=== PATIENT | male | born 1945 | race Caucasian/White ===

== ENCOUNTER 2017-09-11 09:32 | Emergency (ER) | payer OTHER ==
[~2017-09-11] VITALS: Ht 172.7 cm; Wt 149.7 kg
[~2017-09-11 09:32] MED LIST: ACET325 PO; ACYC5TO15G TOP; ALBU3IS INH; ASPI325 PO; ASPI81CH PO; Antivert12.5 MG PO; BUME2 PO; Bactrim 400-801 EACH PO; CALC.25 PO; CARV25 PO; CARV6.25 PO; CITA20 PO; CLIN300 PO; CLON.5 PO; CLON1 PO; CYAN500 PO; DILT240 PO; FLUC100 PO; FURO40 PO; GABA300 PO; HYDACE10B PO; INS70/30I SC; LIDO5TP TOP; Lotrimin AF90 GM TP; MECL12.5 PO; METO2.5 PO; NYSTRITC TOP; OXYACE5T PO; OXYC1TAB11 PO; Pedi-Dri 100,0060 GM TOP; ROPI1 PO; Requip0.5 MG PO; SIMV10 PO; SIMV40 PO; SPIR50 PO; Simvastatin20 MG PO; TAMS.4ER PO; TRAZ50 PO; ULORIC; WARF3 PO; WARF6 PO; ZOLP10 PO; ZOLP12.5 PO
[2017-09-11 10:16] LABS: BASOPHILS PERCENT AUTO 0 % (0-2); EOSINOPHILS ABSOLUTE AUTO 0.01 K/mm3 (0.00-0.68); EOSINOPHILS PERCENT AUTO 0 % (0-6); Hematocrit 38.7 % (37.0-53.0); IMMATURE GRAN ABSOLUTE AUTO 0.01 K/mm3 (0.00-0.10); IMMATURE GRAN PERCENT AUTO 0 % (0-1); LYMPHOCYTES ABSOLUTE AUTO 0.67 K/mm3 (0.84-5.20); LYMPHOCYTES PERCENT AUTO 17 % (21-46); MONOCYTES ABSOLUTE AUTO 0.29 K/mm3 (0.16-1.47); MONOCYTES PERCENT AUTO 7 % (4-13); Mean Corpuscular HGB 30.6 pg (26.0-34.0); Mean Corpuscular HGB Conc 33.6 g/dL (31.5-36.5); Mean Corpuscular Volume 91 fL (80-100); Mean Platelet Volume 12.6 fL (9.1-12.4); NEUTROPHILS ABSOLUTE AUTO 2.99 K/mm3 (1.96-9.15); NEUTROPHILS PERCENT AUTO 75 % (41-73); Platelet Count 92 K/mm3 (150-400); RDW Coefficient Variation 14.5 % (11.7-14.2); RDW Standard Deviation 48.1 fL (35.1-46.3); Red Blood Cell Count 4.25 M/mm3 (4.30-5.90); White Blood Cell Count 3.97 K/mm3 (4.00-11.30)
[2017-09-11 10:30] LABS: Alanine Aminotransfer (ALT/SGP 10 U/L (12-78); Albumin, Blood 3.6 g/dL (3.4-5.0); Alk Phos 71 U/L (50-136); Anion Gap 9 mmol/L (6-16); Aspartate Aminotrans (AST/SGOT 13 U/L (12-37); Bilirubin, Total 0.7 mg/dL (0.1-1.0); Blood Urea Nitrogen 12 mg/dL (8-24); CO2, Blood 26 mmol/L (21-32); Calcium, Blood 8.4 mg/dL (8.5-10.1); Chloride, Blood 101 mmol/L (98-108); Creatinine, Blood 1.09 mg/dL (0.60-1.20); Globulin, Blood 3.5 g/dL (2.2-4.0); Glomerular Filtration Rate >60 (60-); Glucose, Blood 92 mg/dL (70-99); Potassium, Blood 3.7 mmol/L (3.5-5.5); Sodium, Blood 136 mmol/L (136-145); Total Protein, Blood 7.1 g/dL (6.4-8.2); Troponin I 0.026 ng/mL (0.000-0.040)
[2017-09-11] MEDS ORDERED: AZIT500 PO (12:26)
[2017-09-11 12:38] LABS: International Normalized Ratio 1.07; Prothrombin Time Results 11.2 Sec (9.7-11.5)
[2017-12-11] MEDS ORDERED: INSU100I6 SC (13:05)
[2018-06-24] MEDS ORDERED: PRED20 (10:10)
== END 2017-09-11 13:35 | disposition home or self-care (01) ==
LOC: ER 09:32
PROVIDERS: Emergency Medicine
DX: J18.9 Pneumonia, unspecified organism (principal); L30.9 Dermatitis, unspecified; Z88.1 Allergy status to other antibiotic agents; Z79.899 Other long term (current) drug therapy; Z79.01 Long term (current) use of anticoagulants; Z79.82 Long term (current) use of aspirin; I13.0 Hypertensive heart and chronic kidney disease with heart failure and stage 1 through stage 4 chronic kidney disease, or unspecified chronic kidney disease; E11.22 Type 2 diabetes mellitus with diabetic chronic kidney disease; N18.9 Chronic kidney disease, unspecified; I50.9 Heart failure, unspecified; I48.91 Unspecified atrial fibrillation
CPT/HCPCS: 36415; 71046; 80053; 83880; 84484; 85025; 85610; 93005; 93010; 99283

== ENCOUNTER 2017-12-07 09:00 | Inpatient (IN) | payer OTHER ==
[~2017-12-07] VITALS: Ht 172.7 cm; Wt 146.5 kg
[~2017-12-07 09:00] MED LIST changes: +AZIT500 PO
[2017-12-07] MEDS ORDERED: XARELTO15 MG PO (09:26)
[2017-12-07] MEDS ORDERED: FURO80 PO (09:27)
[2017-12-07] MEDS ORDERED: SPIR50 PO (09:27)
[2017-12-07] MEDS ORDERED: DULO30 PO (09:28)
[2017-12-07 09:42] LABS: BASOPHILS ABSOLUTE AUTO 0.06 K/mm3 (0.00-0.23); BASOPHILS PERCENT AUTO 0 % (0-2); EOSINOPHILS ABSOLUTE AUTO 0.06 K/mm3 (0.00-0.68); EOSINOPHILS PERCENT AUTO 0 % (0-6); Hematocrit 38.5 % (37.0-53.0); Hemoglobin 12.5 g/dL (13.5-17.5); IMMATURE GRAN PERCENT AUTO 1 % (0-1); LYMPHOCYTES ABSOLUTE AUTO 1.35 K/mm3 (0.84-5.20); LYMPHOCYTES PERCENT AUTO 8 % (21-46); MONOCYTES ABSOLUTE AUTO 1.04 K/mm3 (0.16-1.47); MONOCYTES PERCENT AUTO 6 % (4-13); Mean Corpuscular HGB 31.8 pg (26.0-34.0); Mean Corpuscular HGB Conc 32.5 g/dL (31.5-36.5); Mean Corpuscular Volume 98 fL (80-100); Mean Platelet Volume 12.8 fL (9.1-12.4); NEUTROPHILS ABSOLUTE AUTO 15.19 K/mm3 (1.96-9.15); NEUTROPHILS PERCENT AUTO 85 % (41-73); Platelet Count 185 K/mm3 (150-400); RDW Standard Deviation 50.6 fL (35.1-46.3); Red Blood Cell Count 3.93 M/mm3 (4.30-5.90)
[2017-12-07 09:56] LABS: International Normalized Ratio 1.09; Prothrombin Time Results 11.4 Sec (9.7-11.5)
[2017-12-07 10:03] LABS: Albumin, Blood 3.6 g/dL (3.4-5.0); Albumin/Globulin Ratio 0.9 (0.8-1.8); Bilirubin, Total 1.5 mg/dL (0.1-1.0); Bun/Creatinine Ratio 16.4 (12.0-20.0); Calcium, Blood 8.9 mg/dL (8.5-10.1); Creatinine, Blood 1.34 mg/dL (0.60-1.20); Globulin, Blood 3.9 g/dL (2.2-4.0); Magnesium, Blood 2.3 mg/dL (1.6-2.4); Potassium, Blood 4.3 mmol/L (3.5-5.5); Total Protein, Blood 7.5 g/dL (6.4-8.2); Troponin I 0.282 ng/mL (0.000-0.040)
[2017-12-07 21:17] LABS: Appearance, Urine Hazy (Clear); Blood, Urine 2+ (Neg); Color, Urine Amber (P-Yellow); Glucose Qualitative, Urine Neg (Neg); Ketones, Urine 1+ (Neg); Leukocyte Esterase, Urine 2+ (Neg); Nitrite, Urine Neg (Neg); Protein, Urine 2+ (Neg); Specific Gravity, Urine 1.025 (1.003-1.022); Urobilinogen, Urine 1+ (Normal)
[2017-12-07 21:27] LABS: Bilirubin, Urine 1+ (Neg)
[2017-12-07 21:28] LABS: Red Blood Cells, Urine Rare /hpf (0-2)
[2017-12-07 21:29] LABS: Bacteria Few /hpf; Other Crystals Many /hpf; Squamous Epithelial Cells Rare /hpf (Few)
[2017-12-10 05:31] LABS: BASOPHILS ABSOLUTE AUTO 0.02 K/mm3 (0.00-0.23); BASOPHILS PERCENT AUTO 0 % (0-2); EOSINOPHILS ABSOLUTE AUTO 0.13 K/mm3 (0.00-0.68); EOSINOPHILS PERCENT AUTO 2 % (0-6); Hematocrit 33.9 % (37.0-53.0); Hemoglobin 11.1 g/dL (13.5-17.5); IMMATURE GRAN ABSOLUTE AUTO 0.03 K/mm3 (0.00-0.10); IMMATURE GRAN PERCENT AUTO 1 % (0-1); LYMPHOCYTES ABSOLUTE AUTO 1.17 K/mm3 (0.84-5.20); LYMPHOCYTES PERCENT AUTO 21 % (21-46); MONOCYTES PERCENT AUTO 7 % (4-13); Mean Corpuscular HGB 31.9 pg (26.0-34.0); Mean Corpuscular HGB Conc 32.7 g/dL (31.5-36.5); Mean Corpuscular Volume 97 fL (80-100); Mean Platelet Volume 12.3 fL (9.1-12.4); NEUTROPHILS PERCENT AUTO 69 % (41-73); Platelet Count 118 K/mm3 (150-400); RDW Coefficient Variation 13.6 % (11.7-14.2); RDW Standard Deviation 48.3 fL (35.1-46.3); Red Blood Cell Count 3.48 M/mm3 (4.30-5.90); White Blood Cell Count 5.65 K/mm3 (4.00-11.30)
[2017-12-10 05:53] LABS: Bun/Creatinine Ratio 21.7 (12.0-20.0); Calcium, Blood 8.5 mg/dL (8.5-10.1); Creatinine, Blood 1.38 mg/dL (0.60-1.20); Potassium, Blood 4.7 mmol/L (3.5-5.5)
[2017-12-11 11:53] LABS: Bun/Creatinine Ratio 20.9 (12.0-20.0); Calcium, Blood 8.8 mg/dL (8.5-10.1); Creatinine, Blood 1.39 mg/dL (0.60-1.20); Potassium, Blood 4.3 mmol/L (3.5-5.5)
[2017-12-11] MEDS ORDERED: XARELTO20 MG PO (11:59)
[2017-12-11] MEDS ORDERED: PRAV20 PO (11:59)
[2017-12-11] MEDS ORDERED: CIPR500 PO (12:00)
[2017-12-11] MEDS ORDERED: CLOP75 PO (12:00)
[2017-12-11] MEDS ORDERED: Senna Plus Tab1 EACH PO (12:02)
[2017-12-11] MEDS ORDERED: GABA100 PO (12:04)
[2017-12-11] MEDS ORDERED: LIDOCAINE1 EACH TOP (12:05)
[2017-12-11] MEDS ORDERED: ALBU3IS INH (12:06)
[2017-12-11] MEDS ORDERED: MIRALAX17 GM PO (12:07)
[2017-12-11] MEDS ORDERED: METO25 PO (12:07)
[2017-12-11] MEDS ORDERED: ROXICODONE5 MG PO (12:08)
[2017-12-11] MEDS ORDERED: INSU100I6 (13:05)
== END 2017-12-11 17:35 | DRG 281 ==
LOC: ER 09:00 → MEDS 12:11 → ENPENDDIS 12-11 10:00 → MEDS 12-11 17:35
PROVIDERS: Emergency Medicine; Internal Medicine
PROC: 3E0234Z Introduction of Serum, Toxoid and Vaccine into Muscle, Percutaneous Approach (ICD-10-PCS; principal; 2017-12-07)
DX: I21.4 Non-ST elevation (NSTEMI) myocardial infarction (principal); I13.0 Hypertensive heart and chronic kidney disease with heart failure and stage 1 through stage 4 chronic kidney disease, or unspecified chronic kidney disease; N17.9 Acute kidney failure, unspecified; E66.2 Morbid (severe) obesity with alveolar hypoventilation; I50.32 Chronic diastolic (congestive) heart failure; Z68.42 Body mass index [BMI] 45.0-49.9, adult; E11.22 Type 2 diabetes mellitus with diabetic chronic kidney disease; I48.2 Chronic atrial fibrillation; N18.3 Chronic kidney disease, stage 3 (moderate); Z23 Encounter for immunization; I25.10 Atherosclerotic heart disease of native coronary artery without angina pectoris; G89.29 Other chronic pain; J44.9 Chronic obstructive pulmonary disease, unspecified; E78.5 Hyperlipidemia, unspecified
CPT/HCPCS: 36415; 71045; 73030; 80048; 80053; 81001; 82550; 82947; 83735; 83880; 84484; 85025; 85610; 85730; 87077; 87086; 87186; 87493; 93005; 93010; 94640; 94760; 97110; 97161; 97165; 97530; C8929; G8978; G8979; G8987; G8988; J7030; Q9957

== ENCOUNTER 2018-01-08 08:47 | Observation (INO) | payer OTHER ==
[~2018-01-08] VITALS: Ht 172.7 cm; Wt 150.1 kg
[~2018-01-08 08:47] MED LIST changes: +CIPR500 PO; +CLOP75 PO; +DULO30 PO; +FURO80 PO; +GABA100 PO; +INSU100I6 SC; +LIDOCAINE1 EACH TOP; +METO25 PO; +MIRALAX17 GM PO; +PRAV20 PO; +ROXICODONE5 MG PO; +Senna Plus Tab1 EACH PO; +XARELTO15 MG PO; +XARELTO20 MG PO
[2018-01-08 09:34] LABS: BASOPHILS ABSOLUTE AUTO 0.03 K/mm3 (0.00-0.23); BASOPHILS PERCENT AUTO 0 % (0-2); EOSINOPHILS ABSOLUTE AUTO 0.08 K/mm3 (0.00-0.68); EOSINOPHILS PERCENT AUTO 1 % (0-6); Hematocrit 34.5 % (37.0-53.0); Hemoglobin 11.3 g/dL (13.5-17.5); IMMATURE GRAN ABSOLUTE AUTO 0.05 K/mm3 (0.00-0.10); IMMATURE GRAN PERCENT AUTO 1 % (0-1); LYMPHOCYTES ABSOLUTE AUTO 1.26 K/mm3 (0.84-5.20); LYMPHOCYTES PERCENT AUTO 16 % (21-46); MONOCYTES ABSOLUTE AUTO 0.51 K/mm3 (0.16-1.47); MONOCYTES PERCENT AUTO 6 % (4-13); Mean Corpuscular HGB 31.7 pg (26.0-34.0); Mean Corpuscular HGB Conc 32.8 g/dL (31.5-36.5); Mean Corpuscular Volume 97 fL (80-100); NEUTROPHILS ABSOLUTE AUTO 6.12 K/mm3 (1.96-9.15); NEUTROPHILS PERCENT AUTO 76 % (41-73); Platelet Count 122 K/mm3 (150-400); RDW Coefficient Variation 12.4 % (11.7-14.2); RDW Standard Deviation 44.6 fL (35.1-46.3); Red Blood Cell Count 3.56 M/mm3 (4.30-5.90); White Blood Cell Count 8.05 K/mm3 (4.00-11.30)
[2018-01-08 09:44] LABS: Bun/Creatinine Ratio 14.6 (12.0-20.0); Calcium, Blood 8.4 mg/dL (8.5-10.1); Creatinine, Blood 1.3 mg/dL (0.60-1.20); Potassium, Blood 4.5 mmol/L (3.5-5.5)
[2018-01-08 09:53] LABS: CPK Creatine Kinase 33 U/L (39-308)
[2018-01-08 12:12] LABS: Source, Urine Voided
[2018-01-08 12:19] LABS: Bilirubin, Urine Neg (Neg); Blood, Urine Neg (Neg); Glucose Qualitative, Urine Neg (Neg); Ketones, Urine Neg (Neg); Leukocyte Esterase, Urine 1+ (Neg); Nitrite, Urine Neg (Neg); Protein, Urine 1+ (Neg); Urobilinogen, Urine NORM (Normal); pH, Urine 6.5 (5.0-8.0)
[2018-01-08 12:26] LABS: Appearance, Urine Clear (Clear); Color, Urine Yellow (P-Yellow)
[2018-01-08 12:27] LABS: Bacteria Few /hpf; Red Blood Cells, Urine 0-2 /hpf (0-2); Squamous Epithelial Cells Few /hpf (Few)
[2018-01-08 18:28] LABS: Creatinine, Blood 1.27 mg/dL (0.60-1.20); Potassium, Blood 4.4 mmol/L (3.5-5.5)
[2018-01-10 06:01] LABS: BASOPHILS ABSOLUTE AUTO 0.02 K/mm3 (0.00-0.23); BASOPHILS PERCENT AUTO 0 % (0-2); EOSINOPHILS ABSOLUTE AUTO 0.15 K/mm3 (0.00-0.68); EOSINOPHILS PERCENT AUTO 2 % (0-6); Hematocrit 34.4 % (37.0-53.0); IMMATURE GRAN ABSOLUTE AUTO 0.02 K/mm3 (0.00-0.10); IMMATURE GRAN PERCENT AUTO 0 % (0-1); LYMPHOCYTES ABSOLUTE AUTO 1.34 K/mm3 (0.84-5.20); LYMPHOCYTES PERCENT AUTO 19 % (21-46); MONOCYTES ABSOLUTE AUTO 0.53 K/mm3 (0.16-1.47); MONOCYTES PERCENT AUTO 8 % (4-13); Mean Corpuscular HGB 31.3 pg (26.0-34.0); Mean Corpuscular Volume 98 fL (80-100); Mean Platelet Volume 12.2 fL (9.1-12.4); NEUTROPHILS ABSOLUTE AUTO 4.95 K/mm3 (1.96-9.15); NEUTROPHILS PERCENT AUTO 71 % (41-73); Platelet Count 96 K/mm3 (150-400); RDW Coefficient Variation 12.7 % (11.7-14.2); RDW Standard Deviation 45.6 fL (35.1-46.3); Red Blood Cell Count 3.52 M/mm3 (4.30-5.90); White Blood Cell Count 7.01 K/mm3 (4.00-11.30)
[2018-01-10 06:15] LABS: Bun/Creatinine Ratio 19.6 (12.0-20.0); Calcium, Blood 8.5 mg/dL (8.5-10.1); Creatinine, Blood 1.43 mg/dL (0.60-1.20); Potassium, Blood 4.3 mmol/L (3.5-5.5)
[2018-01-11] MEDS ORDERED: CODEINE-GUAIFE120 ML PO (10:55)
[2018-01-11] MEDS ORDERED: SENN187 PO (10:55)
== END 2018-01-11 13:45 | disposition home or self-care (01) ==
LOC: ER 08:47 → MEDS 08:48 → ER 14:56 → MEDS 14:56
PROVIDERS: Emergency Medicine; Hospitalist
DX: R53.1 Weakness (principal); I13.0 Hypertensive heart and chronic kidney disease with heart failure and stage 1 through stage 4 chronic kidney disease, or unspecified chronic kidney disease; E11.22 Type 2 diabetes mellitus with diabetic chronic kidney disease; I50.9 Heart failure, unspecified; N18.9 Chronic kidney disease, unspecified; G89.29 Other chronic pain; E78.5 Hyperlipidemia, unspecified; I25.2 Old myocardial infarction; I48.91 Unspecified atrial fibrillation; E66.01 Morbid (severe) obesity due to excess calories; Z79.4 Long term (current) use of insulin; Z79.01 Long term (current) use of anticoagulants; Z68.43 Body mass index [BMI] 50.0-59.9, adult; Z79.899 Other long term (current) drug therapy; Z79.02 Long term (current) use of antithrombotics/antiplatelets; W19.XXXA Unspecified fall, initial encounter
CPT/HCPCS: 36415; 70450; 71045; 80048; 81001; 82550; 82947; 85025; 87086; 93005; 93010; 94640; 94760; 97162; 97166; 97530; 97535; 99285; G0378; G0515; G8978; G8979; G8987; G8988; J1817

== ENCOUNTER 2018-10-16 13:50 | Emergency (ER) | payer OTHER ==
[~2018-10-16] VITALS: Ht 175.3 cm; Wt 163.3 kg
[~2018-10-16 13:50] MED LIST changes: +CODEINE-GUAIFE120 ML PO; +PRED20; +SENN187 PO
[2018-10-16 15:18] LABS: BASOPHILS ABSOLUTE AUTO 0.03 K/mm3 (0.00-0.23); BASOPHILS PERCENT AUTO 1 % (0-2); EOSINOPHILS ABSOLUTE AUTO 0.11 K/mm3 (0.00-0.68); EOSINOPHILS PERCENT AUTO 2 % (0-6); Hematocrit 36.9 % (37.0-53.0); Hemoglobin 11.9 g/dL (13.5-17.5); IMMATURE GRAN ABSOLUTE AUTO 0.02 K/mm3 (0.00-0.10); IMMATURE GRAN PERCENT AUTO 0 % (0-1); LYMPHOCYTES ABSOLUTE AUTO 1.13 K/mm3 (0.84-5.20); LYMPHOCYTES PERCENT AUTO 20 % (21-46); MONOCYTES ABSOLUTE AUTO 0.31 K/mm3 (0.16-1.47); MONOCYTES PERCENT AUTO 5 % (4-13); Mean Corpuscular HGB 30.5 pg (26.0-34.0); Mean Corpuscular HGB Conc 32.2 g/dL (31.5-36.5); Mean Corpuscular Volume 95 fL (80-100); NEUTROPHILS ABSOLUTE AUTO 4.14 K/mm3 (1.96-9.15); NEUTROPHILS PERCENT AUTO 72 % (41-73); Platelet Count 113 K/mm3 (150-400); RDW Coefficient Variation 12.9 % (11.7-14.2); RDW Standard Deviation 44.3 fL (35.1-46.3); White Blood Cell Count 5.74 K/mm3 (4.00-11.30)
[2018-10-16 15:34] LABS: Albumin, Blood 3.7 g/dL (3.4-5.0); Albumin/Globulin Ratio 1.1 (0.8-1.8); Bilirubin, Total 0.3 mg/dL (0.1-1.0); Bun/Creatinine Ratio 20.1 (12.0-20.0); Calcium, Blood 8.4 mg/dL (8.5-10.1); Creatinine, Blood 1.34 mg/dL (0.60-1.20); Globulin, Blood 3.5 g/dL (2.2-4.0); Potassium, Blood 4.4 mmol/L (3.5-5.5); Total Protein, Blood 7.2 g/dL (6.4-8.2)
[2018-10-16] MEDS ORDERED: Augmentin 875-1 EACH PO (17:10)
[2018-10-16] MEDS ORDERED: Oxycodone-Apap1 EAC3 PO (17:50)
[2018-10-16] MEDS ORDERED: TRAZ100 PO (17:51)
== END 2018-10-16 18:04 | disposition home or self-care (01) ==
LOC: ER 13:50
PROVIDERS: Physician Assistant
DX: M86.9 Osteomyelitis, unspecified (principal); E11.22 Type 2 diabetes mellitus with diabetic chronic kidney disease; N18.9 Chronic kidney disease, unspecified; I50.9 Heart failure, unspecified; I48.91 Unspecified atrial fibrillation; Z79.899 Other long term (current) drug therapy; Z79.02 Long term (current) use of antithrombotics/antiplatelets
CPT/HCPCS: 36415; 73660; 80053; 85025; 99284-25

== ENCOUNTER 2019-05-31 17:29 | Emergency (ER) | payer OTHER ==
[~2019-05-31] VITALS: Ht 175.3 cm; Wt 140.6 kg
[~2019-05-31 17:29] MED LIST changes: +Augmentin 875-1 EACH PO; +Oxycodone-Apap1 EAC3 PO; +TRAZ100 PO
[2019-05-31 18:23] LABS: BASOPHILS ABSOLUTE AUTO 0.02 K/mm3 (0.00-0.23); BASOPHILS PERCENT AUTO 1 % (0-2); EOSINOPHILS ABSOLUTE AUTO 0.11 K/mm3 (0.00-0.68); EOSINOPHILS PERCENT AUTO 3 % (0-6); Hematocrit 37.7 % (37.0-53.0); Hemoglobin 11.8 g/dL (13.5-17.5); IMMATURE GRAN ABSOLUTE AUTO 0.02 K/mm3 (0.00-0.10); IMMATURE GRAN PERCENT AUTO 1 % (0-1); LYMPHOCYTES ABSOLUTE AUTO 1.25 K/mm3 (0.84-5.20); LYMPHOCYTES PERCENT AUTO 29 % (21-46); MONOCYTES ABSOLUTE AUTO 0.33 K/mm3 (0.16-1.47); MONOCYTES PERCENT AUTO 8 % (4-13); Mean Corpuscular HGB 31.5 pg (26.0-34.0); Mean Corpuscular HGB Conc 31.3 g/dL (31.5-36.5); Mean Corpuscular Volume 101 fL (80-100); Mean Platelet Volume 12.7 fL (9.1-12.4); NEUTROPHILS ABSOLUTE AUTO 2.56 K/mm3 (1.96-9.15); NEUTROPHILS PERCENT AUTO 60 % (41-73); Platelet Count 115 K/mm3 (150-400); RDW Coefficient Variation 13.2 % (11.7-14.2); RDW Standard Deviation 49.3 fL (35.1-46.3); Red Blood Cell Count 3.75 M/mm3 (4.30-5.90); White Blood Cell Count 4.29 K/mm3 (4.00-11.30)
[2019-05-31 18:40] LABS: Source, Urine Voided
[2019-05-31 18:41] LABS: Alanine Aminotransfer (ALT/SGP 7 U/L (12-78); Albumin, Blood 3.2 g/dL (3.4-5.0); Alk Phos 82 U/L (50-136); Anion Gap 3 mmol/L (6-16); Aspartate Aminotrans (AST/SGOT 13 U/L (12-37); Bilirubin, Total 0.6 mg/dL (0.1-1.0); Blood Urea Nitrogen 19 mg/dL (8-24); Bun/Creatinine Ratio 16.2 (12.0-20.0); CO2, Blood 26 mmol/L (21-32); Calcium, Blood 8.7 mg/dL (8.5-10.1); Chloride, Blood 109 mmol/L (98-108); Creatinine, Blood 1.17 mg/dL (0.60-1.20); Free Thyroxine 1.07 ng/dL (0.70-1.60); Globulin, Blood 3.3 g/dL (2.2-4.0); Glomerular Filtration Rate >60 (60-); Glucose, Blood 106 mg/dL (70-99); Magnesium, Blood 2.1 mg/dL (1.6-2.4); Potassium, Blood 3.7 mmol/L (3.5-5.5); Sodium, Blood 138 mmol/L (136-145); Total Protein, Blood 6.5 g/dL (6.4-8.2)
[2019-05-31 18:45] LABS: Thyroid Stimulating Hormone 0.965 uIU/mL (0.360-4.800)
[2019-05-31 18:47] LABS: Bilirubin, Urine Neg (Neg); Blood, Urine 3+ (Neg); Glucose Qualitative, Urine Neg (Neg); Ketones, Urine Neg (Neg); Leukocyte Esterase, Urine 3+ (Neg); Nitrite, Urine Neg (Neg); Protein, Urine 2+ (Neg); Urobilinogen, Urine NORM (Normal)
[2019-05-31 18:59] LABS: Appearance, Urine Clear (Clear); Color, Urine Yellow (P-Yellow); White Blood Cells, Urine TNTC /hpf (0-5)
[2019-05-31 19:00] LABS: Bacteria Mod /hpf; Squamous Epithelial Cells Few /hpf (Few)
[2019-05-31] MEDS ORDERED: Keflex500 MG PO (20:04)
== END 2019-05-31 22:00 | disposition home or self-care (01) ==
LOC: ER 17:29
PROVIDERS: Emergency Medicine
DX: N39.0 Urinary tract infection, site not specified (principal); R29.898 Other symptoms and signs involving the musculoskeletal system; E11.22 Type 2 diabetes mellitus with diabetic chronic kidney disease; N18.9 Chronic kidney disease, unspecified; I50.9 Heart failure, unspecified; Z79.899 Other long term (current) drug therapy; Z79.891 Long term (current) use of opiate analgesic
CPT/HCPCS: 36415; 71046; 80053; 81001; 83735; 84439; 84443; 85025; 87077; 87086; 87186; 93005; 93010; 96365; 99284-25; J0696

== ENCOUNTER 2019-06-02 08:18 | Inpatient (IN) | payer OTHER ==
[~2019-06-02] VITALS: Ht 170.2 cm; Wt 136.1 kg
[~2019-06-02 08:18] MED LIST changes: +Keflex500 MG PO
[2019-06-02] MEDS ORDERED: CLON1 PO (08:54)
[2019-06-02] MEDS ORDERED: DULO30 PO (08:54)
[2019-06-02] MEDS ORDERED: Aldactone50 MG PO (08:54)
[2019-06-02] MEDS ORDERED: Percocet 5-3251 EACH PO (08:54)
[2019-06-02] MEDS ORDERED: TRAZ100 PO (08:55)
[2019-06-02] MEDS ORDERED: METO25ER PO (08:55)
[2019-06-02] MEDS ORDERED: CLOP75 PO (08:55)
[2019-06-02] MEDS ORDERED: Pravachol40 MG PO (08:55)
[2019-06-02 09:14] LABS: BASOPHILS ABSOLUTE AUTO 0.02 K/mm3 (0.00-0.23); BASOPHILS PERCENT AUTO 0 % (0-2); EOSINOPHILS ABSOLUTE AUTO 0.12 K/mm3 (0.00-0.68); EOSINOPHILS PERCENT AUTO 2 % (0-6); Hematocrit 36.9 % (37.0-53.0); Hemoglobin 12.1 g/dL (13.5-17.5); IMMATURE GRAN ABSOLUTE AUTO 0.01 K/mm3 (0.00-0.10); IMMATURE GRAN PERCENT AUTO 0 % (0-1); LYMPHOCYTES ABSOLUTE AUTO 1.23 K/mm3 (0.84-5.20); LYMPHOCYTES PERCENT AUTO 25 % (21-46); MONOCYTES ABSOLUTE AUTO 0.38 K/mm3 (0.16-1.47); MONOCYTES PERCENT AUTO 8 % (4-13); Mean Corpuscular HGB 30.5 pg (26.0-34.0); Mean Corpuscular HGB Conc 32.8 g/dL (31.5-36.5); Mean Platelet Volume 12.2 fL (9.1-12.4); NEUTROPHILS ABSOLUTE AUTO 3.14 K/mm3 (1.96-9.15); NEUTROPHILS PERCENT AUTO 64 % (41-73); Platelet Count 127 K/mm3 (150-400); RDW Coefficient Variation 13.5 % (11.7-14.2); RDW Standard Deviation 46.1 fL (35.1-46.3); Red Blood Cell Count 3.97 M/mm3 (4.30-5.90)
[2019-06-02 09:18] LABS: Mean Corpuscular Volume 93 fL (80-100)
[2019-06-02 09:26] LABS: Albumin, Blood 3.4 g/dL (3.4-5.0); Bilirubin, Total 0.5 mg/dL (0.1-1.0); Bun/Creatinine Ratio 16.5 (12.0-20.0); Calcium, Blood 8.7 mg/dL (8.5-10.1); Creatinine, Blood 1.27 mg/dL (0.60-1.20); Globulin, Blood 3.3 g/dL (2.2-4.0); Potassium, Blood 3.4 mmol/L (3.5-5.5); Total Protein, Blood 6.7 g/dL (6.4-8.2)
[2019-06-02 09:58] LABS: Source, Urine Clean Catch
[2019-06-02 10:08] LABS: Bilirubin, Urine Neg (Neg); Blood, Urine 1+ (Neg); Glucose Qualitative, Urine Neg (Neg); Ketones, Urine 1+ (Neg); Leukocyte Esterase, Urine 3+ (Neg); Nitrite, Urine Neg (Neg); Protein, Urine 2+ (Neg); Urobilinogen, Urine NORM (Normal)
[2019-06-02 10:13] LABS: Appearance, Urine Clear (Clear); Color, Urine Yellow (P-Yellow)
[2019-06-02 10:17] LABS: Bacteria Few /hpf; Mucus Light (0-Heavy); Squamous Epithelial Cells Mod /hpf (Few)
[2019-06-02] MEDS ORDERED: ZOLP5 PO (11:43)
--- NOTE | 2019-06-02 17:14 | NUR ---
Physician notified Dr. Yang notified RE patient requesting for anxiety and pain meds. Order for pain med received. No orders for anxiety.
--- NOTE | 2019-06-02 17:15 | NUR ---
Shift Summary A/Ox3. Cooperative with care. Pt is max assist with ADL's and uses a powerscooter at home. Calls appropriately for needs. Medicated x 1 for leg/all over pain. Pt states pain hasn't improved. C/o leg pain and now anxiety. No c/o of N/V/D/constipation. BP was 201/95 this afternoon, medicated x 1 per EMAR. BP is now 150/92. No c/o chest pain or headache. Call light in reach. Will continue to monitor.
--- NOTE | 2019-06-02 21:05 | NUR ---
open sore on right arm
--- NOTE | 2019-06-03 04:56 | NUR ---
Shift summary: Pt c/o severe pain right middle toe and bilateral knee pain from arthritis. End of 3rd toe on right foot black and very painful Pt refuses to even think about amputation of toe. Percocet not giving adequate relief and pt not able to sleep. teodora Avila and americo kennedy. notified and I recieved an additional dose of trazadone and oxycodone. Pt has been sleeping since recieving the trazadone and oxycodone. Pt very non-compliant with diabetic issues. Pt states he never takes his blood sugars and is not interested in diabetic teaching.
--- NOTE | 2019-06-03 18:34 | NUR ---
PATIENT A/OX4, UP WITH 2 ASSIST AND FWW TO PIVOT TX TO BSC/CHAIR. PATIENT VERY FEARFUL OF FALLING WHEN TRANSFERRING AND NEEDS ENCOURAGEMENT AND REASSURANCE TO GET OOB. WORKED WITH PT/OT TODAY AND SNF HAS BEEN RECOMMENDED. DR. PANDYA CONSULTED TODAY AND PLAN IS TO DO AN ANGIOGRAM IN AM. PATIENT REMAINS VERY PAINFUL, PERCOCET INCREASED TO 2 TABS Q4 HOURS WITH SOME RELIEF. SKIN TEAR TO R HAND REDRESSED TODAY. PATIENT VOIDING IN URINAL AND HAD A LARGE BM TODAY. VSS, ON RA. CALM AND COOPERATIVE WITH CARE, CALLS APPROPRIATELY FOR ASSISTANCE.
--- NOTE | 2019-06-04 06:04 | NUR ---
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 NPO with possible amputation rt toe and potention revascularization by surgery. PT lives alone, has fallen at home recently multiple scattered dried scabs present. PT OT suggest SNF on discharge.
--- NOTE | 2019-06-04 14:55 | NUR ---
PATIENT TO CREDIT CASHIER AND WILL GO TO PCU POST PROCEDURE.
--- NOTE | 2019-06-04 19:37 | NUR ---
PT TO ICU 3 FROM HEADER SETUP OPERATOR AT 1745, REPORT RECEIVED FROM BEST VERA. VSS, SEE ASSESSMENT. PT IN AFIB, HR 60'S. LEFT GROIN ACCESS SITE WNL, NO OOZING, HEMATOMA, OR TENDERNESS AT SITE, DRESSING CDI. BILAT PEDAL PULSES FAINT BUT PRESENT, BILAT TIBIAL PULSES BY DOPPLER ONLY, CAP REFILL SLOW TO BLE'S, SKIN SCALY AND DRY WITH SCATTERED SMALL SCABS. RIGHT THIRD TOE BLACK ON POSTERIOR ASPECT, LEFT MIDDLE TOE PURPLE ON ANTERIOR ASPECT. PT REPORTS RLE PAIN 8/10, MEDICATED WITH PERCOCET PER ORDERS. NS INFUSING TO LEFT AC AT TKO. PT TOLERATED DINNER WELL WITH ASSISTANCE WHILE LYING FLAT BUT IN REVERSE TRENDELENBURG TO MAINTAIN GROIN ACCESS PRECAUTIONS. LLE REMAINS FLAT, PT REMINDED FREQUENTLY TO MAINTAIN FLAT POSITION AND KEEP HEAD ON PILLOW. PT PLEASANT BUT FORGETFUL ABOUT PRECAUTIONS. PRECAUTIONS WILL BE COMPLETED AT 2130, REPORT GIVEN TO ONCOMING NURSE.
--- NOTE | 2019-06-04 19:47 | NUR ---
LEFT GROIN ACCESS SITE UNCHANGED AT SHIFT REPORT, SITE WNL, PT DENIES TENDERNESS.
--- NOTE | 2019-06-04 23:23 | NUR ---
PT RESTING IN BED. C/O PAIN IN R LEG. HAD REVASCULARIZATION DONE TO R LEG TODAY. ABLE TO FIND ALL LE'S PULSES WITH DOPPLER. SKIN IS DRY AND FLAKEY. R BARILLAS HAS PURPLE DISCOLORATION TO SKIN AND SOME OLD DRIED BLISTERS. TOE NAILS ARE YELLOW, HARDENED, AND THICK BILAT. R 3RD TOE IS BLACK. L 3RD TOE HAS A SMALL AREA OF DARK PURPLE DISCOLORATION. HAS ACCESS SITE TO L GROIN THAT IS STABLE. PT HAS BEEN ABLE TO SIT UP IN BED WITHOUT ANY ISSUE OF BLEEDING TO L GROIN. SEE ASSESSMENT. PT ABLE TO USE CALL LIGHT.
[2019-06-05 03:33] LABS: BASOPHILS ABSOLUTE AUTO 0.02 K/mm3 (0.00-0.23); BASOPHILS PERCENT AUTO 0 % (0-2); EOSINOPHILS ABSOLUTE AUTO 0.13 K/mm3 (0.00-0.68); EOSINOPHILS PERCENT AUTO 3 % (0-6); Hematocrit 34.4 % (37.0-53.0); Hemoglobin 11.3 g/dL (13.5-17.5); IMMATURE GRAN ABSOLUTE AUTO 0.02 K/mm3 (0.00-0.10); IMMATURE GRAN PERCENT AUTO 0 % (0-1); LYMPHOCYTES ABSOLUTE AUTO 1.07 K/mm3 (0.84-5.20); LYMPHOCYTES PERCENT AUTO 21 % (21-46); MONOCYTES ABSOLUTE AUTO 0.48 K/mm3 (0.16-1.47); MONOCYTES PERCENT AUTO 9 % (4-13); Mean Corpuscular HGB 31.4 pg (26.0-34.0); Mean Corpuscular HGB Conc 32.8 g/dL (31.5-36.5); Mean Corpuscular Volume 96 fL (80-100); Mean Platelet Volume 12.6 fL (9.1-12.4); NEUTROPHILS PERCENT AUTO 67 % (41-73); Platelet Count 116 K/mm3 (150-400); RDW Coefficient Variation 13.6 % (11.7-14.2); RDW Standard Deviation 47.8 fL (35.1-46.3); White Blood Cell Count 5.22 K/mm3 (4.00-11.30)
[2019-06-05 03:55] LABS: Bun/Creatinine Ratio 18.6 (12.0-20.0); Calcium, Blood 8.5 mg/dL (8.5-10.1); Creatinine, Blood 1.4 mg/dL (0.60-1.20)
--- NOTE | 2019-06-05 06:42 | NUR ---
SUMMARY PT RESTING IN BED. A/O X4. HAS HAD PAIN IN R LEG MOST OF THE NIGHT. ABLE TO TAKE SHORT NAPS AFTER PERCOCET GIVEN. PULSES TO LE'S FOUND WITH DOPPLER. FEET ARE WARM TO TOUCH. L GROIN ACCESS SITE HAS BEEN STABLE ALL NIGHT. PT IS ABLE TO SIT UP IN BED AND ROLL BACK AND FORTH. NO OTHER CHANGES. ABLE TO USE CALL LIGHT. NO SIGN OF DISTRESS.
--- NOTE | 2019-06-05 08:08 | NUR ---
CARE ASSUMED, ASSESSMENT COMPLETED. PT A&OX4, APPRPRIATE AND COOPERATIVE. HR 50'S-60'S AFIB, OTHER VSS. LEFT GROIN ACCESS SITE WNL, NO HEMATOMA, BLEEDING, OR TENDERNESS NOTED. RLE ELEVATED ON PILLOW, SKIN DRY AND FLAKY, BARILLAS PURPLE COLORED BUT WARM, 3RD RIGHT TOE BLACK WITH DRY GANGRENE. LLE DRY AND FLAKY, LEFT 3RD TOE WITH PURPLE DISCOLORATION. BLE TOES COOL WITH SLUGGISH CAP REFILL, PULSE TO L PEDIS FAINT, OTHER LE PULSES BY DOPPLER. PT REPORTS PAIN 8/10 TO BLE'S, MEDICATED WITH PERCOCET PER ORDERS. PT VOIDING IN URINAL, DENIES URINARY SYMPTOMS, NO APPARENT BLOOD PRESENT IN URINE. CALL LIGHT IN REACH, SR UP, BED LOCKED, PT USING CALL LIGHT APPROPRIATELY.
--- NOTE | 2019-06-05 09:23 | NUR ---
PT SAT AT BEDSIDE TO EAT BREAKFAST, TOLERATED WELL, THEN ASSISTED BACK INTO BED TO WATCH TV. PT BECAME DROWSY, PALE, REPORTS FEELING LIGHT HEADED. PT HYPOTENSIVE, HR REMAINS UNCHAGED 60'S AFIB. DR MONTERO NOTIFIED, NEW ORDER RECEIED, BOLUS INFUSING.
--- NOTE | 2019-06-05 09:27 | NUR ---
PT REMAINS ORIETNTED AND APPROPRIATE, THOUGH DROWSY. WAKES EASILY TO VERBAL. BP 76/44, MAP 56, BOLUS CONTINUES TO INFUSE. PT DENIES CHEST PAIN/PRESSUE. O2 PLACE AT 2L/NC, SPO2 98%.
--- NOTE | 2019-06-05 10:01 | NUR ---
DR. MONTERO NOTIFIED OF CONTINUALLY DECREASING BP DESPITE BOLUS, HR REMAINS 50'S-60'S AFIB. PT DROWSY BUT ORIENTED, FOLLOWING COMMANDS, REMAINS PALE AND "LIGHT HEADED." CELL ROOM OPERATOR CONSULTED, DR. MONTERO AT BEDSIDE. POWERGLIDE PLACED.
--- NOTE | 2019-06-05 10:23 | NUR ---
BOLUS COMPLETED, ADDITIONAL 500ML BOLUS INFUSING PER DR. MORAES. PT REMAINS ORIENED X4, PALE AND "A LITTLE LIGHT HEADED." SPIRONOLACTONE HELD PER DR. MONTERO.
--- NOTE | 2019-06-05 11:04 | NUR ---
LEVOPHED INITIATED PER ORDERS, BP RESPONDING WELL. EKG COMPLETED, DR. MORAES AWARE OF RESULT, NO NEW ORDERS AT THIS TIME. LEVO INFUSING AT 4MCG/MIN, MAP 81.
--- NOTE | 2019-06-05 12:23 | NUR ---
PT SITTING UP IN BED, STATES HE IS FEELING BETTER, DENIES DIZZINESS. BP STABLE, HR UNCHANGED, PT'S COLOR HAS IMPROVED. PT'S DAUGHTER IN LAW AT BEDSIDE TO VISIT, PT EATING LUNCH. LABS DRAWN.
--- NOTE | 2019-06-05 13:14 | NUR ---
LEVO OFF, BP WNL. COUNTER SALES PERSON AT BEDSIDE FOR TESTING, LE US TO BE COMPLETED AFTER ECHO. PT ASSISTED TO VOID, DENIES OTHER NEEDS.
--- NOTE | 2019-06-05 16:10 | NUR ---
BEDBATH GIVEN, PT TOLERATED WELL, BP STABLE. HR UNCHANGED. PT AND OT AT BEDSIDE FOR THERAPY, PT ACTIVELY PARTICIPATING. REPORTS LE PAIN, WILL MEDICATE PER MAR, PT DENIES OTHER NEEDS.
--- NOTE | 2019-06-05 18:29 | NUR ---
180: PT SAT AT BEDSIDE TO EAT DINNER, TOLERATED WELL. PT REMAINS NORMOTENSIVE, HR UNCHANGED, DENIES SOB/DIZZINESS/CP, COLOR IS GOOD. SKIN TEAR TO RIGHT HAND CLEANED WITH WOUND CLEANSER, DRESSED WITH ABX OINTMENT AND A BANDAID. PT NOW RESTING IN BED WATCHING TV, DENIES NEEDS. 1829: PT SLEEPING, HR 60'S AFIB, BP 130/81, REMAINS OFF OF LEVOPHED. SPO2 99% ON RA. GROIN ACCESS SITE WNL, RLE ELVEATED, SKIN CONDITION UNCHANGED, PULSES BY DOPPLER. PT VOIDING SMALL AMOUNTS, STATES HE DOES NOT VOID MUCH AT BASELINE. REPORT TO ONCOMING SHIFT.
--- NOTE | 2019-06-05 20:45 | NUR ---
ASSUMED CARE RECEIVED REPORT FROM BEST PHELPS. PT IS LYING BED SLEEPING, BUT EASILY AROUSABLE. LEFT GROIN SITE IS CDI, NO SIGNS OF HEMATOMA FORMATION, SOFT AND NONTENDER. BED IS LOW AND LOCKED. CALL LIGHT WITHIN REACH.
[2019-06-06 03:33] LABS: Hematocrit 32.1 % (37.0-53.0); Hemoglobin 10.4 g/dL (13.5-17.5); Mean Corpuscular HGB 31.3 pg (26.0-34.0); Mean Corpuscular HGB Conc 32.4 g/dL (31.5-36.5); Mean Corpuscular Volume 97 fL (80-100); Mean Platelet Volume 12.1 fL (9.1-12.4); Platelet Count 105 K/mm3 (150-400); RDW Coefficient Variation 13.6 % (11.7-14.2); RDW Standard Deviation 48.4 fL (35.1-46.3); Red Blood Cell Count 3.32 M/mm3 (4.30-5.90); White Blood Cell Count 4.98 K/mm3 (4.00-11.30)
[2019-06-06 03:48] LABS: Calcium, Blood 8.2 mg/dL (8.5-10.1); Creatinine, Blood 1.4 mg/dL (0.60-1.20); Magnesium, Blood 2.2 mg/dL (1.6-2.4)
--- NOTE | 2019-06-06 05:49 | NUR ---
SHIFT SUMMARY PT HAS STRUGGLED WITH PAIN IN HIS RIGHT LEG/FOOT THROUGHOUT NIGHT, ONLY GETTING MINIMAL SLEEP. HIS PULSES HAVE BEEN DOPPABLE ONLY IN HIS LOWER EXTREMETIES, AND FAINT/THREADY PALPABLE IN UPPER EXTREMETIES. HE IS ALERT AND ORIENTED X 4. VITALS HAVE BEEN STABLE ALL NIGHT. PT IS INDEPENDENT IN BED, AT HOME PT IS A STAND, PIVOT TO WHEELCHAIR, BUT IS INDEPENDENT IN BED THERE WELL. HIS LEFT GROIN SITE IS CDI, SOFT, NONTENDER AND NO SIGN OF HEMATOMA FORMATION. PT HAS BPH/HESITENCY AND ONLY URINATES UP TO 150 CC/URINATION. PT IS IN AFIB WITH SLOW VENTRICULAR RESPONSE, ASYMPTOMATIC. BED IS LOW AND LOCKED, CALL LIGHT WITHIN REACH.
--- NOTE | 2019-06-06 12:30 | NUR ---
REASSESSMENT: PT HAS SPENT MOST OF THE DAY RESTING IN BED. HE IS GETTING UP TO THE EOB FOR MEALS AND WORKED WITH PT/OT THIS MORNING. HE REMAINS ALERT AND ORIENTED, LUNGS ARE CLEAR, RA. HE IS AFIB WITH RATE IN THE 50-70S, BP STABLE WITH SBP IN THE 140S. PT IS EATING WELL. HIS LOWER EXTREMITIES REMAIN BARBARA FROM THE KNEE DOWN. PT HAS SOME PAIN IN HIS LOWER EXTREMITIESE, MEDICATING WITH PERCOCET WELL POSITIONING LIMBS FOR COMFORT. PT IS TRANSFERRING TO MEDICAL FLOOR. CONTINUING TO MONITOR.
--- NOTE | 2019-06-06 12:52 | NUR ---
REPORT GIVEN TO BEST ARCE. PT TRANSFERRED TO 363 VIA BED WITH AIDE. ALL BELONGINGS TRANSFERRED WITH PT.
--- NOTE | 2019-06-06 16:56 | NUR ---
SHIFT SUMMARY PT TRANSFERRED TO ROOM 363 FROM ICU. PT DENIES PAIN, SOB AND NV. PT CALLS APPROPRIATELY. PT HAS DC ORDER. PER DC COORDINATOR, PT TO DC TO [facility] TOMORROW (06/07/19). SEE NOTE. BED IN LOW POSITION, CALL LIGHT WITHIN REACH. NO ACUTE CHANGES.
--- NOTE | 2019-06-07 04:37 | NUR ---
SHIFT SUMMARY: 73 Y/O OBESE MALE RESTED COMFORTABLY ALL SHIFT, VOIDING CLEAR YELLOW FLUID, C/O GENERALIZED PAIN RATED 6/10 WITH OXYCODONE 5MG PO GIVEN WITH RELIEF FELT, BED LOW POSITION WITH CALL LIGHT AT SIDE.
[2019-06-07] MEDS ORDERED: DULO30 PO (11:13)
[2019-06-07] MEDS ORDERED: DOCU100 PO (11:13)
[2019-06-07] MEDS ORDERED: CLOP75 PO (11:13)
[2019-06-07] MEDS ORDERED: Pravachol40 MG PO (11:14)
[2019-06-07] MEDS ORDERED: Vsl#3 Capsule1 EACH PO (11:14)
[2019-06-07] MEDS ORDERED: Milk Of Ma400 MG/5 M PO (11:14)
--- NOTE | 2019-06-07 12:26 | NUR ---
PT A/O STATES SOME PAIN RT LEG FOOT. MOSTLY TOE. IT IS DARK. MED PER EMAR. H/R IRREG, NO MRMER NOTED. NO TELE. LUNGS CLEAR, RESP EASY UNLABORED. ON R.A. BT X4 LAST BM YST. VOIDS URINAL. IS 2 MAX ASST OR LIFT. NOTE HAS SMALL APROX 2 MM HOLE, CDI AT FEMORAL ARTERY UNDER SKIN FOLDS. ON LEFT. SITE FROM INTERVENTION DONE RECENTLY. NO DRAINAGE NOTED. NO OTHER CONCERNS AT THIS TIME. BED IN LOW POSITION ,CALL LITE IN REACH, CALLS APPROP PENDING D/C TO SNF FOR REHAB TODAY
--- NOTE | 2019-06-07 13:03 | NUR ---
PFENDING D/C TO [facility]. IV PULLED INTACT X2, NO TLE. CALLED REPORT TO [facility] RN. THEY ARE NOT AVAIL AT THIS TIME. THEY TO CALL BACK.
--- NOTE | 2019-06-07 13:52 | NUR ---
CALLED [facility] FOR REPORT. PT OUT AT 1345. REPORT GIVEN TO WANG JEWELL.
== END 2019-06-07 13:45 | DRG 253 ==
LOC: ER 08:18 → MEDS 08:19 → ICUE 08:19 → MEDS 08:19 → ICUE 06-04 08:19 → MEDS 06-04 12:24 → ICUE 06-04 15:12 → MEDS 06-06 13:15
PROVIDERS: Emergency Medicine; ADMIT Internal Medicine
PROC: 5A1945Z Respiratory Ventilation, 24-96 Consecutive Hours (ICD-10-PCS; principal; 2019-06-04)
PROC: 047M341 Dilation of Right Popliteal Artery with Drug-eluting Intraluminal Device, using Drug-Coated Balloon, Percutaneous Approach (ICD-10-PCS; 2019-06-04)
PROC: 047R3DZ Dilation of Right Posterior Tibial Artery with Intraluminal Device, Percutaneous Approach (ICD-10-PCS; 2019-06-04)
PROC: 047P3DZ Dilation of Right Anterior Tibial Artery with Intraluminal Device, Percutaneous Approach (ICD-10-PCS; 2019-06-04)
DX: E11.52 Type 2 diabetes mellitus with diabetic peripheral angiopathy with gangrene (principal); N39.0 Urinary tract infection, site not specified; I16.1 Hypertensive emergency; I96 Gangrene, not elsewhere classified; I13.0 Hypertensive heart and chronic kidney disease with heart failure and stage 1 through stage 4 chronic kidney disease, or unspecified chronic kidney disease; I50.32 Chronic diastolic (congestive) heart failure; Z68.42 Body mass index [BMI] 45.0-49.9, adult; I48.2 Chronic atrial fibrillation; N18.3 Chronic kidney disease, stage 3 (moderate); E11.22 Type 2 diabetes mellitus with diabetic chronic kidney disease; E66.01 Morbid (severe) obesity due to excess calories; R33.9 Retention of urine, unspecified; D69.6 Thrombocytopenia, unspecified; W18.30XA Fall on same level, unspecified, initial encounter; Z98.84 Bariatric surgery status; E78.5 Hyperlipidemia, unspecified; F32.9 Major depressive disorder, single episode, unspecified; Z91.81 History of falling; Z99.3 Dependence on wheelchair; E87.6 Hypokalemia; B96.4 Proteus (mirabilis) (morganii) as the cause of diseases classified elsewhere; I95.2 Hypotension due to drugs; T44.6X5A Adverse effect of alpha-adrenoreceptor antagonists, initial encounter
CPT/HCPCS: 36415; 37224; 37229; 37232; 75625; 75716; 75774; 80048; 80053; 81001; 83735; 83880; 84484; 85025; 85027; 85347; 87086; 93005; 93010; 93306; 93926; 93930; 93970; 97110; 97163; 97166; 97530; 97535; 99152; 99153; 99285-25; A9270-GY; C1725; C1760; C1769; C1887; C1894; C2623; J0360; J0696; J1644; J1650; J2060; J2250; J3010; J7030; J7050; J7060; Q9967

== ENCOUNTER 2019-11-09 20:10 | Inpatient (IN) | payer OTHER ==
[~2019-11-09] VITALS: Ht 172.7 cm; Wt 133.4 kg
[~2019-11-09 20:10] MED LIST changes: +Aldactone50 MG PO; +DOCU100 PO; +METO25ER PO; +Milk Of Ma400 MG/5 M PO; +Percocet 5-3251 EACH PO; +Pravachol40 MG PO; +Vsl#3 Capsule1 EACH PO; +ZOLP5 PO
[2019-11-09 20:34] LABS: BASOPHILS ABSOLUTE AUTO 0.06 K/mm3 (0.00-0.23); BASOPHILS PERCENT AUTO 0 % (0-2); EOSINOPHILS ABSOLUTE AUTO 0.07 K/mm3 (0.00-0.68); EOSINOPHILS PERCENT AUTO 1 % (0-6); Hematocrit 42.5 % (37.0-53.0); Hemoglobin 13.8 g/dL (13.5-17.5); IMMATURE GRAN ABSOLUTE AUTO 0.08 K/mm3 (0.00-0.10); IMMATURE GRAN PERCENT AUTO 1 % (0-1); LYMPHOCYTES PERCENT AUTO 10 % (21-46); MONOCYTES ABSOLUTE AUTO 0.65 K/mm3 (0.16-1.47); MONOCYTES PERCENT AUTO 5 % (4-13); Mean Corpuscular HGB 30.6 pg (26.0-34.0); Mean Corpuscular HGB Conc 32.5 g/dL (31.5-36.5); Mean Corpuscular Volume 94 fL (80-100); Mean Platelet Volume 12.2 fL (9.1-12.4); NEUTROPHILS ABSOLUTE AUTO 11.42 K/mm3 (1.96-9.15); NEUTROPHILS PERCENT AUTO 84 % (41-73); Platelet Count 124 K/mm3 (150-400); RDW Coefficient Variation 13.6 % (11.7-14.2); RDW Standard Deviation 47.6 fL (35.1-46.3); Red Blood Cell Count 4.51 M/mm3 (4.30-5.90); White Blood Cell Count 13.68 K/mm3 (4.00-11.30)
[2019-11-09 20:40] LABS: PCO2 Arterial 40.5 mmHg (35-45); PO2 Arterial 93.6 mmHg (80-100); pH Blood Arterial 7.38 (7.35-7.45)
[2019-11-09 21:45] LABS: Alanine Aminotransfer (ALT/SGP 12 U/L (12-78); Albumin, Blood 3.9 g/dL (3.4-5.0); Albumin/Globulin Ratio 1.1 (0.8-1.8); Alk Phos 96 U/L (50-136); Anion Gap 10 mmol/L (6-16); Aspartate Aminotrans (AST/SGOT 13 U/L (12-37); Blood Urea Nitrogen 17 mg/dL (8-24); Bun/Creatinine Ratio 11.6 (12.0-20.0); CO2, Blood 25 mmol/L (21-32); Calcium, Blood 8.7 mg/dL (8.5-10.1); Chloride, Blood 103 mmol/L (98-108); Creatinine, Blood 1.46 mg/dL (0.60-1.20); Globulin, Blood 3.5 g/dL (2.2-4.0); Glomerular Filtration Rate 50 (60-); Glucose, Blood 181 mg/dL (70-99); Potassium, Blood 3.5 mmol/L (3.5-5.5); Sodium, Blood 138 mmol/L (136-145); Total Protein, Blood 7.4 g/dL (6.4-8.2)
[2019-11-09 22:11] LABS: Troponin I <0.015 ng/mL (0.000-0.040)
[2019-11-09 23:43] LABS: International Normalized Ratio 1.05; Prothrombin Time Results 11.2 Sec (9.7-11.5)
[2019-11-10 00:41] LABS: Phosphorus, Blood 3.1 mg/dL (2.5-4.9)
[2019-11-10 06:18] LABS: BASOPHILS ABSOLUTE AUTO 0.02 K/mm3 (0.00-0.23); BASOPHILS PERCENT AUTO 0 % (0-2); EOSINOPHILS PERCENT AUTO 0 % (0-6); Hematocrit 36.9 % (37.0-53.0); Hemoglobin 11.9 g/dL (13.5-17.5); IMMATURE GRAN ABSOLUTE AUTO 0.02 K/mm3 (0.00-0.10); IMMATURE GRAN PERCENT AUTO 0 % (0-1); LYMPHOCYTES ABSOLUTE AUTO 0.27 K/mm3 (0.84-5.20); LYMPHOCYTES PERCENT AUTO 4 % (21-46); MONOCYTES ABSOLUTE AUTO 0.46 K/mm3 (0.16-1.47); MONOCYTES PERCENT AUTO 6 % (4-13); Mean Corpuscular HGB 30.7 pg (26.0-34.0); Mean Corpuscular HGB Conc 32.2 g/dL (31.5-36.5); Mean Corpuscular Volume 95 fL (80-100); Mean Platelet Volume 12.6 fL (9.1-12.4); NEUTROPHILS ABSOLUTE AUTO 7.05 K/mm3 (1.96-9.15); NEUTROPHILS PERCENT AUTO 90 % (41-73); Platelet Count 88 K/mm3 (150-400); RDW Coefficient Variation 14.1 % (11.7-14.2); RDW Standard Deviation 49.4 fL (35.1-46.3); Red Blood Cell Count 3.88 M/mm3 (4.30-5.90); White Blood Cell Count 7.82 K/mm3 (4.00-11.30)
[2019-11-10 06:43] LABS: Bun/Creatinine Ratio 12.3 (12.0-20.0); Calcium, Blood 8.6 mg/dL (8.5-10.1); Creatinine, Blood 1.54 mg/dL (0.60-1.20); Potassium, Blood 4.7 mmol/L (3.5-5.5)
--- NOTE | 2019-11-10 10:30 | NUR ---
ARRIVAL TO ICU PT ARRIVED TO ICU APPROX 1005. BP STABLE. HR AFIB RATE IN 80'S. PT DENIES CHEST PAIN OR DIZZINESS. MILD SOB, WHICH PT STATES HAS BEEN PROGRESSIVE SINCE HIS COUGH AND SORE THROAT STARTED APPROX A WEEK AGO. AFEBRILE. 02 SAT 90'S ON 3 LPM. PT REQUESTING FOOD, EDUCATED ON NPO STATUS HE IS WAITING FOR CARDIOLOGY CONSULT. SPOKE WITH DR. PUGH WHO PLANS TO SEE PATIENT THIS AFTERNOON. SKIN CARE PROVIDED, PT ORIENTED TO ROOM, DECLINES FURTHER NEEDS.
--- NOTE | 2019-11-10 11:07 | NUR ---
PROVIDER COMMUNICATION SPOKE WITH DR. GOODE REGARDING PT'S SORE THROAT, COUGH AND SPUTUM PRODUCTION. DR. GOODE STATES HE WILL PUT IN ORDERS.
[2019-11-10 15:06] LABS: Source, Urine Catheter
[2019-11-10 15:14] LABS: Appearance, Urine Clear (Clear); Bilirubin, Urine Neg (Neg); Blood, Urine 2+ (Neg); Color, Urine Yellow (P-Yellow); Glucose Qualitative, Urine Neg (Neg); Ketones, Urine Neg (Neg); Leukocyte Esterase, Urine 1+ (Neg); Nitrite, Urine Neg (Neg); Protein, Urine Neg (Neg); Specific Gravity, Urine 1.015 (1.003-1.022); Urobilinogen, Urine NORM (Normal)
[2019-11-10 15:47] LABS: Bacteria Few /hpf; Squamous Epithelial Cells Few /hpf (Few)
[2019-11-10 16:40] LABS: Adenovirus Not Detected (NOT DETECT); Bordetella pertussis Not Detected (NOT DETECT); Chlamydophila pneumoniae Not Detected (NOT DETECT); Coronavirus 229E Not Detected (NOT DETECT); Coronavirus HKU1 Not Detected (NOT DETECT); Coronavirus NL63 Not Detected (NOT DETECT); Coronavirus OC43 Not Detected (NOT DETECT); Human Metapneumovirus Not Detected (NOT DETECT); Human Rhinovirus/Enterovirus Not Detected (NOT DETECT); Influenza A Not Detected (NOT DETECT); Influenza A/2009-H1 Not Detected (NOT DETECT); Influenza A/H1 Not Detected (NOT DETECT); Influenza A/H3 Not Detected (NOT DETECT); Influenza B Not Detected (NOT DETECT); Mycoplasma pneumoniae Not Detected (NOT DETECT); Parainfluenza Virus 1 Not Detected (NOT DETECT); Parainfluenza Virus 2 Not Detected (NOT DETECT); Parainfluenza Virus 3 Not Detected (NOT DETECT); Parainfluenza Virus 4 Not Detected (NOT DETECT); Respiratory Syncytial Virus Detected (NOT DETECT)
--- NOTE | 2019-11-10 17:30 | NUR ---
ISOLATION PT NOTED TO BE RSV POSITIVE. ISOLATION INITIATED.
--- NOTE | 2019-11-10 18:22 | NUR ---
TRANSFER PT CHANGED TO MEDICAL STATUS BY DR. GOODE. NOTIFIED BY OFFICE AUDITOR THAT PT TO TRANSFER TO 358. PT UPDATED AND AGREEABLE. REPORT GIVEN TO BEST JOYCE ON MEDICAL FLOOR. NIELS CHIU TO BEDSIDE FOR TRANSFER.
--- NOTE | 2019-11-10 18:30 | NUR ---
SUMMARY SINCE ARRIVAL TO ICU, PT ALERT AND ORIENTED, VITALS STABLE. ABLE TO TITRATE OXYGEN DOWN TO 1 LPM VIA NASAL CANNULA. PT HAS BEEN HUNGRY, FED DINNER THIS EVENING ONCE APPROVED BY BOTH CARDIOLOGY AND HOSPITALIST. PHOTOS TAKEN OF WOUNDS AND PLACED ON CHART. PT APPEARS ORIENTED TO HEALTH HISTORY AND MEDICATION, SEE ADMISSION ASSESSMENT AND HISTORY. OTHERWISE, PT HAS RESTED QUIETLY WATCHING TELEVISION. AGREEABLE TO REPOSITIONING. CALLING APPROPRIATELY FOR NEEDS. VITALS STABLE, HEPARIN GTT INFUSING AND PT ON 1 LPM NASAL CANNULA UPON DEPARTURE FROM ICU.
--- NOTE | 2019-11-10 18:37 | NUR ---
DR. KEATON PUGH TO BEDSIDE FOR ASSESSMENT. REPEAT EKG COMPLETED PER DR. PUGH REQUEST. PLAN FOR MEDICAL MANAGEMENT. CONTINUE WITH HEPARIN GTT FOR NOW. SEE PROVIDER NOTE AND LABS. PT CHANGED TO DNR STATUS.
--- NOTE | 2019-11-10 18:45 | NUR ---
pt arrived to the medical floor from the icu via stretcher, a/ox3, appearst to be breathing easily on ra, the pt was slide over to the bed, pt oriented to the room layout and call system, call light in reach, report was taken from Pamela avendñao in ICU
--- NOTE | 2019-11-11 04:48 | NUR ---
SHIFT SUMMARY PT HAD MOSTLY UNEVENTFUL NIGHT. PT DID NOT SLEEP WELL. PT HAD MOSTLY NONPRODUCTIVE DRY NAGGING COUGH KEEPING HIM AWAKE MUCH OF THE NIGHT. HOWEVER, PT'S BREATHING WAS UNLABORED. LUNG SOUNDS VERY DIMINISHED THROUGHOUT. PT REMAINED ON 1 L O2 NC. DID NOT REQUIRE THE BIPAP. CARSON PATENT AND DRAINING LIGHT YELLOW URINE. REDNESS TO FOLDS, ESPECIALLY LEFT ARMPIT. NYSTATIN CREAM APPLIED. PT HAS NECROTIC R 3RD TOE AND SCABBY WOUND ON SAME OUTER LOWER EXTREMITY. APPEARS TO HAVE OVERALL POOR CIRCULATION TO LOWER EXTREMETIES. PEDAL PULSES DIFFICULT TO PALPATE. PT'S TROPONINS CONTINUE TO BE CRITICALLY HIGH BUT TRENDING DOWN THIS AM TO 1.2 FROM 1.41. VITAL SIGNS HAVE REMAINED STABLE. WILL CONTINUE TO MONITOR.
[2019-11-11 05:29] LABS: BASOPHILS ABSOLUTE AUTO 0.02 K/mm3 (0.00-0.23); BASOPHILS PERCENT AUTO 1 % (0-2); EOSINOPHILS ABSOLUTE AUTO 0.03 K/mm3 (0.00-0.68); EOSINOPHILS PERCENT AUTO 1 % (0-6); Hemoglobin 11.3 g/dL (13.5-17.5); IMMATURE GRAN ABSOLUTE AUTO 0.02 K/mm3 (0.00-0.10); IMMATURE GRAN PERCENT AUTO 1 % (0-1); LYMPHOCYTES ABSOLUTE AUTO 0.32 K/mm3 (0.84-5.20); LYMPHOCYTES PERCENT AUTO 8 % (21-46); MONOCYTES PERCENT AUTO 10 % (4-13); Mean Corpuscular HGB 30.5 pg (26.0-34.0); Mean Corpuscular HGB Conc 32.3 g/dL (31.5-36.5); Mean Corpuscular Volume 95 fL (80-100); Mean Platelet Volume 12.4 fL (9.1-12.4); NEUTROPHILS ABSOLUTE AUTO 3.28 K/mm3 (1.96-9.15); NEUTROPHILS PERCENT AUTO 81 % (41-73); Platelet Count 70 K/mm3 (150-400); RDW Coefficient Variation 13.9 % (11.7-14.2); RDW Standard Deviation 48.8 fL (35.1-46.3); White Blood Cell Count 4.07 K/mm3 (4.00-11.30)
[2019-11-11 06:14] LABS: Alanine Aminotransfer (ALT/SGP 10 U/L (12-78); Anion Gap 5 mmol/L (6-16); Aspartate Aminotrans (AST/SGOT 11 U/L (12-37); Blood Urea Nitrogen 20 mg/dL (8-24); CHOL/HDL RATIO 2.9; CO2, Blood 32 mmol/L (21-32); Calcium, Blood 8.1 mg/dL (8.5-10.1); Chloride, Blood 96 mmol/L (98-108); Cholesterol 166 mg/dL (50-200); Creatinine, Blood 1.43 mg/dL (0.60-1.20); Glomerular Filtration Rate 51 (60-); Glucose, Blood 98 mg/dL (70-99); HDL Cholesterol 57 mg/dL (>39); LDL/HDL RATIO 1.6; Low Density Lipoprotein Chol 94 mg/dL (0-110); Potassium, Blood 3.8 mmol/L (3.5-5.5); Sodium, Blood 133 mmol/L (136-145); Triglycerides 75 mg/dL (30-160); Very Low Density Lipoprot Chol 15 mg/dL (6-32)
[2019-11-11 06:19] LABS: Troponin I 0.791 ng/mL (0.000-0.040)
--- NOTE | 2019-11-11 15:03 | NUR ---
PT AGREED TO ALLOW LOREE RN TO ASSIST WITH THE RN ON 11/11/19 FOR 11/12/19
--- NOTE | 2019-11-11 19:47 | NUR ---
SHIFT SUMMARY: NO ACUTE CHANGES TO REPORT THIS SHIFT. PT A&O; CALM AND COOPERATIVE WITH CARE. HEPARING DRIP D/C'd THIS SHIFT; ORAL & SC ANTICOAGULANTS. PT NOT OOB THIS SHIFT; USES POWERED CHAIR AT BASELINE. CARSON IN PLACE; PATENT AND DRAINING. REPORT GIVEN TO ONCOMING RN.
--- NOTE | 2019-11-12 03:18 | NUR ---
PT HAS NOT SLEPT THROUGHOUT THE NIGHT
--- NOTE | 2019-11-12 04:26 | NUR ---
SUMMARY PT COUGH HAS KEPT PT UP ALL SHIFT. PT COUGH MED WAS CHANGED AFTER CALL TO PROVIDER WINDY. PT COUGH MED CHANGED TO Q4 AND DOSE 5-10 ML. PT LS IS COARSE AND TIGHT T/O. CRACKLES IN LUNG BASES NOTED. PT ALSO REPORTS THAT TRAZEDONE A SLEEP AID DOES NOT WORK FOR HIM. PT STATES AMBIEN HAS WORKED WELL FOR HIM. PT CARSON IS DRAINING WELL, URINE IS DARK YELLOW AND HAS STRONG ODOR. NO FEVERS NOTED. PT CURRENTLY WATCHING TV AND CONTINUING TO COUGH. CALL LIGHT IN REACH.
[2019-11-12 05:05] LABS: Hematocrit 35.8 % (37.0-53.0); Hemoglobin 11.9 g/dL (13.5-17.5); Mean Corpuscular HGB 31.2 pg (26.0-34.0); Mean Corpuscular HGB Conc 33.2 g/dL (31.5-36.5); Mean Corpuscular Volume 94 fL (80-100); Mean Platelet Volume 12.4 fL (9.1-12.4); Platelet Count 75 K/mm3 (150-400); RDW Coefficient Variation 13.8 % (11.7-14.2); RDW Standard Deviation 47.7 fL (35.1-46.3); Red Blood Cell Count 3.81 M/mm3 (4.30-5.90); White Blood Cell Count 4.45 K/mm3 (4.00-11.30)
[2019-11-12 05:34] LABS: Bun/Creatinine Ratio 17.2 (12.0-20.0); Calcium, Blood 8.2 mg/dL (8.5-10.1); Creatinine, Blood 1.34 mg/dL (0.60-1.20); Potassium, Blood 3.8 mmol/L (3.5-5.5)
--- NOTE | 2019-11-12 19:54 | NUR ---
SHIFT SUMMARY: NO ACUTE CHANGES TO REPORT THSI SHIFT. PT A&O; CALM AND COOPERATIVE WITH CARE. MEDICATED FOR CHRONIC BACK PAIN & COUGH PER EMAR; PT ON BEDREST-USES POWERED CHAIR AT HOME. PT IN ISO FOR RSV; EXP WHEEZES; O2 @ 2L-ROOM AIR @ HOME. EXPECTED D/C TO SNF WHEN AVAILABLE. REPORT GIVEN TO ONCOMING RN.
--- NOTE | 2019-11-13 04:56 | NUR ---
Pt is bleeding around cath, clots in shaw 10 sinhala , irrigation with NS atempted by RN with minimal return due to size of catheter. Dr. Guzman notified order for 3 way irrigation cath received.
--- NOTE | 2019-11-13 05:45 | NUR ---
SHIFT SUMMARY PT IS PLEASANT AND COOPERATIVE WITH CARE. AAOX4, RESP UNLABORED AT REST. HE DID HAVE A VIEW SCORE OF 5 EARLY THIS NIGHT WHICH IS BELIEVED TO HAVE BEEN CAUSED BY AN INACCURATE BP MACHINE. I DID A MANUAL BP AND IT WAS 128/72. SUBSEQUENT VITALS HAVE BEEN NORMAL WELL. PT DENIED CHANGE IN S/S. BP MACHINE HAS BEEN SENT TO [facility] FOR REPAIR OR CALIBRATION. TREATED PT FOR PAIN ONCE THIS NIGHT TO GOOD EFFECT. PT DID HAVE A COUGHING FIT THIS NIGHT AND WAS MOVING HIS LEGS AROUND IN THE BED. HE MAY HAVE PULLED HIS CATHETER BLOOD WAS NOTED TO BE COMING FROM IT AFTER. UNABLE TO FLUSH IT. IT IS COMPLETELY CLOTTED OFF. RECIEVED ORDER TO REPLACE WITH A [address] CATHETER. PT IS ON TELE AND PER COKE INSPECTOR IS AFIB RATE 86 AT THIS TIME.
--- NOTE | 2019-11-13 18:43 | NUR ---
SPOKE TO DR RUPA LISA CARSON CATH. IS DRAINING MOSTLY TEA COLORED AT THIS TIME. APPROX 500 IN CARSON CATH BAG AT THIS TIME. STILL BLOODY AT PENIS EXIT. PT STATES HAD PENIS SURG AND TIP / GLANS REMOVED SOME 20 + YEARS AGO. REQUEST TRY GET TO FLUSH AGAIN. NO NEW ORDRES.
--- NOTE | 2019-11-13 19:31 | NUR ---
PT PLEASANT TODAY, SOMEWHAT FLAT EFFECT. DISCUSSED SLIGHT BLEED AT ATIYA AREA. PT STATES HAS GLANS REMOVED SOME 20+ YEARS AGO. SOME TEA COLORED FLUID IN CARSON LINE ITSELF. DISCUSSED WITH DR GOODE. BLADDER SCAN TO SEE IF CLOTS ARE STOPPING DRAINING. FLUSH NEEDED. HOLDING LOVENOX TONITE IF BLEEDING. PAIN MANAGED WITH AVAIL MEDS. BED IN LOW POSITION, CALL LITE IN REACH, CALLS APPROP
--- NOTE | 2019-11-13 20:34 | NUR ---
*BLEEDING* PT STILL BLEEDING FROM CARSON CATH SITE. PT IS DRAINING TEA COLORED URINE. PT CARSON FLUSHED AND RETURNED YELLOW URINE ONLY. WILL HOLD LOVENOX THIS NOC SHIFT.
[2019-11-14 05:34] LABS: Hematocrit 35.4 % (37.0-53.0); Hemoglobin 11.5 g/dL (13.5-17.5); Mean Corpuscular HGB 30.4 pg (26.0-34.0); Mean Corpuscular HGB Conc 32.5 g/dL (31.5-36.5); Mean Corpuscular Volume 94 fL (80-100); Platelet Count 66 K/mm3 (150-400); RDW Coefficient Variation 13.6 % (11.7-14.2); Red Blood Cell Count 3.78 M/mm3 (4.30-5.90); White Blood Cell Count 4.06 K/mm3 (4.00-11.30)
--- NOTE | 2019-11-14 05:37 | NUR ---
SUMMARY PT CONTINUES TO HAVE BLOOD AT CARSON. LOVENOX WAS HELD ORDERED. AMOUNT OF BLOOD HAS DECREASED SHIFT PROGRESSED. PT WAS FLUSHED W/OUT ANY BLOOD NOTED. PT HAS PUT OUT LITTLE URINE AND HAS HAD LITTLE PO FLUID INTAKE. PT WAS BLADDER SCANNED MULTIPLE TIMES AND NO URINE NOTED. PT HAS COMPLAINED OF BACK PAIN AND TX PER EMAR WITH SOME RELIEF. PT HAS ALSO COMPLAINED OF ITCHY BACK FREQUENTLY. PT REPOSITIONED FREQUENTLY WITH SOME RELIEF IN BACK PAIN AND ITCHINESS. PT CURRENTLY WATCHING TV AND IN NO DISTRESS. CALL LIGHT IN REACH. WCTM.
[2019-11-14 05:43] LABS: Mean Platelet Volume 13.3 fL (9.1-12.4)
[2019-11-14 05:56] LABS: Bun/Creatinine Ratio 18.9 (12.0-20.0); Calcium, Blood 8.3 mg/dL (8.5-10.1); Creatinine, Blood 1.59 mg/dL (0.60-1.20); Potassium, Blood 3.9 mmol/L (3.5-5.5)
[2019-11-14] MEDS ORDERED: Aspir 8181 MG PO (11:26)
[2019-11-14] MEDS ORDERED: ATOR10 PO (11:26)
[2019-11-14] MEDS ORDERED: Duoneb 2.5-0.5 M3 ML INH (11:27)
[2019-11-14] MEDS ORDERED: GUAI600T33 PO (11:27)
[2019-11-14] MEDS ORDERED: METO25ER PO (11:27)
[2019-11-14] MEDS ORDERED: CLOP75 PO (11:27)
[2019-11-14] MEDS ORDERED: HYDROCORTISONE30 GM TOP (11:28)
--- NOTE | 2019-11-14 11:38 | NUR ---
REPORT CALLED TO [facility] AT [facility]. YAMILETH MO'D PER DR GOODE AND GLO AND ZACHARY GIVEN FOR NO BM. AWAITING [facility] TRANSPORT AT THIS TIME. PT REPORTS HE DOES NOT HAVE ANY FAMILY HE NEEDS NOTIFIED OF DISCHARGE.
--- NOTE | 2019-11-14 12:11 | NUR ---
ATTEMPTED TO CALL CAREGIVER BUT PHONE IS NOT INSERVICE AT THIS TIME.
--- NOTE | 2019-11-14 13:25 | NUR ---
BY YOUR SIDE CAREGIVING AGENCY UPDATED ON PT DISCHARGE PLAN TO [facility] TODAY.
--- NOTE | 2019-11-14 14:09 | NUR ---
PT DISCHARGED TO [facility] VIA [employer] W/C TRANSPORT, PT ISRA LIFT OUT OF BED. DISCHARGED AT 1405.
== END 2019-11-14 14:08 | DRG 280 ==
LOC: ER 20:10 → ERHOLD 23:19 → ICUW 23:19 → MEDS 23:19 → ICUW 11-10 10:07 → MEDS 11-10 18:40
PROVIDERS: Internal Medicine; Nurse Practitioner Acute Care; Physician Assistant; ADMIT Family Medicine
PROC: 5A09457 Assistance with Respiratory Ventilation, 24-96 Consecutive Hours, Continuous Positive Airway Pressure (ICD-10-PCS; principal; 2019-11-09)
DX: I13.0 Hypertensive heart and chronic kidney disease with heart failure and stage 1 through stage 4 chronic kidney disease, or unspecified chronic kidney disease (principal); I50.33 Acute on chronic diastolic (congestive) heart failure; I21.4 Non-ST elevation (NSTEMI) myocardial infarction; J96.01 Acute respiratory failure with hypoxia; J12.1 Respiratory syncytial virus pneumonia; I48.20 Chronic atrial fibrillation, unspecified; Z68.42 Body mass index [BMI] 45.0-49.9, adult; E66.2 Morbid (severe) obesity with alveolar hypoventilation; E11.52 Type 2 diabetes mellitus with diabetic peripheral angiopathy with gangrene; I96 Gangrene, not elsewhere classified; N18.3 Chronic kidney disease, stage 3 (moderate); E11.22 Type 2 diabetes mellitus with diabetic chronic kidney disease; D69.6 Thrombocytopenia, unspecified; E78.5 Hyperlipidemia, unspecified; F10.11 Alcohol abuse, in remission; I25.10 Atherosclerotic heart disease of native coronary artery without angina pectoris; I25.2 Old myocardial infarction; I73.9 Peripheral vascular disease, unspecified; R29.6 Repeated falls; Z66 Do not resuscitate; Z99.3 Dependence on wheelchair; G89.29 Other chronic pain; Z91.14 Patient's other noncompliance with medication regimen; I35.0 Nonrheumatic aortic (valve) stenosis; K74.60 Unspecified cirrhosis of liver; R26.89 Other abnormalities of gait and mobility; M17.0 Bilateral primary osteoarthritis of knee
CPT/HCPCS: 0099U; 36415; 36600; 51702; 71045; 71046; 80048; 80053; 80061; 81001; 82803; 83605; 83735; 83880; 84100; 84450; 84460; 84484; 85025; 85027; 85610; 85730; 87040; 87086; 90686; 93005; 93010; 93306; 94640; 94644; 94660; 94760; 94762; 96365; 96366; 96367; 96375; 97110; 97112; 97162; 97166; 97530; 99285-25; A9270; A9270-GY; G0008; J1644; J1650; J1940; J3480